=== PATIENT | female | born 1960 | race Caucasian/White ===

== ENCOUNTER 2023-11-06 22:49 | Emergency (ER) | payer SELFPAY ==
[2023-11-06 22:58] VITALS: BP 171/89; PULSE 91; RESP 18; TEMP 36.7; O2SAT 96; BMI 37.4
--- NOTE | 2023-11-06 23:16 | XR_ITS ---
The [address] [address] Patient Name: KEYSHAWN DURÁN MRN: [id number] date: 1960 Sex: F Assigned Patient Location: ER Current Patient Location: ER Accession/Order Number: [id number] Exam Date: 11/06/2023 23:59 Report Date: 11/07/2023 00:38 At the request of: IRENE MARKER Procedure: XR chest 2V EXAM: XR chest 2V HISTORY: fever, cough COMPARISON: Chest radiographs dated 10/30/2015. TECHNIQUE: 2 views of the chest were obtained. FINDINGS: The cardiac silhouette is stable in size. There are mild left basilar opacities. There is no significant pneumothorax or pleural effusion. No acute osseous abnormality is seen. XR/XR chest 2V IMPRESSION: 1. Mild left basilar atelectasis with otherwise clear lungs. Electronically authenticated by: Paula MCDANIELS Date: 11/07/2023 00:38
--- NOTE | 2023-11-06 23:16 | ED.URI1 ---
HPI - URI/Sore Throat General Chief Complaint: Upper Respiratory Infection Stated Complaint: POSS COVID Time Seen by Provider: 11/06/23 23:04 Source: patient Limitations: no limitations History of Present Illness HPI Narrative: This 63-year-old female, nonsmoker, presents for evaluation of chills, body aches, nausea with nasal congestion and a dry cough. The patient states she thinks she was exposed to COVID 19 at work and/or her has been sick with similar symptoms for the past several days. The patient's symptoms started yesterday. She did have COVID 19 vaccinations but has not had any booster shots. She has not taken any COVID 19 tests at home. She also requests something for her blood pressure because the Garlique tablets that she buys [id number] for her blood pressure has stopped working. She does not have a PCP. She thinks that the mucinex she is taking is causing her blood pressure to go up. She is not having any chest pain, shortness of breath, dizziness, palpations or syncope Related Data Allergies Allergy/AdvReac Type Severity Reaction Status Date / Time No Known Drug Allergies Allergy Verified 11/06/23 23:03 Review of Systems ROS Status of ROS 10 or more systems reviewed and unremarkable except as noted in history and below [facility] Social History Smoking status: Never smoker Exam Narrative Exam Narrative: Nurses note and vital signs reviewed and patient is not hypoxic. She was noted to be elevated at 171/89 General: The patient appears well and in no apparent distress. Patient is resting comfortably on cart. Skin: Warm, dry, no pallor noted. There is no rash noted. Head: Normocephalic, atraumatic Eye: Normal conjunctiva, no drainage, EOMI. PERRL Ears, Nose, Mouth, and Throat: oral mucosa is moist. Nares patent. Mouth without vesicles. Cardiovascular: Regular Rate and Rhythm, S1 and S2, pulses are brisk and equal bilaterally Respiratory: Patient is in no distress, no accessory muscle use, lungs are clear to auscultation, no wheezing, rales or rhonchi Back: non-tender, no CVA tenderness bilaterally to percussion. GI: Normal bowel sounds, no tenderness to palpation, no masses appreciated. No rebound, guarding, or rigidity noted. Musculoskeletal: The patient has no evidence of calf tenderness, no pitting edema, symmetrical pulses noted bilaterally Neurological: A&O x4, normal speech Psychiatric: Cooperative Constitutional Vital Signs, click to edit/add: Last Vital Signs Temp 98.1 F 11/06/23 22:58 Pulse 91 H 11/06/23 22:58 Resp 18 11/06/23 22:58 BP 171/89 H 11/06/23 22:58 Pulse Ox 96 11/06/23 22:58 O2 Del Method Room Air 11/06/23 22:58 Course Vital Signs Vital signs: Vital Signs Temperature 98.1 F 11/06/23 22:58 Pulse Rate 91 H 11/06/23 22:58 Respiratory Rate 18 11/06/23 22:58 Blood Pressure 171/89 H 11/06/23 22:58 Pulse Oximetry 96 11/06/23 22:58 Oxygen Delivery Method Room Air 11/06/23 22:58 Temperature 98.1 F 11/06/23 22:58 Pulse Rate 91 H 11/06/23 22:58 Respiratory Rate 18 11/06/23 22:58 Blood Pressure 171/89 H 11/06/23 22:58 Pulse Oximetry 96 11/06/23 22:58 Oxygen Delivery Method Room Air 11/06/23 22:58 MDM - URI/Sore Throat MDM Narrative Medical decision making narrative: This 63-year-old female, nonsmoker, presents for evaluation of fevers, chills, body aches, head and chest congestion with a dry cough. She also has nausea. She has not been vomiting or had diarrhea. Her has been sick with similar symptoms for the past several days. She had the first round of COVID 19 vaccinations but not the boosters. She also requests that I prescribe something for her elevated blood pressure because she has been taking ahwj-owy-[id number] medications and her blood pressure has not been responding to it. Her physical exam is benign. Her Covid 19 test was positive. She is medicated in emergency department with Zofran and Tylenol. Urinalysis is positive for bacteria and leukocyte esterase. Her chest x-ray does not show any acute findings. Lungs are clear, mediastinum is normal, there is no pulmonary infiltrates. She was medicated in emergency department for the urinary tract infection with Keflex. Her blood pressure is clinically improved. On reevaluation is is 144/88. She will be discharged home. She is agreeable to [facility], I did discuss with her that there are multiple medication interactions and side effects that she should review before taking the medication. 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 Lab Data Labs: Lab Results 11/06/23 11/06/23 Range/Units 23:07 23:47 Urine Color Yellow (YELLOW) Urine Clarity Clear (CLEAR) Urine pH 6.0 (5.0-9.0) Ur Specific [place] >=1.030 A (1.005-1.025) Urine Protein Negative (NEG/TRACE) mg/dL Urine Glucose (UA) Negative (NEGATIVE) mg/dL Urine Ketones Trace A (NEGATIVE) mg/dL Urine Occult Blood Small A (NEGATIVE) Urine Nitrite Negative (NEGATIVE) Urine Bilirubin Negative (NEGATIVE) Urine Urobilinogen 0.2 (0.2-1.0) EU/dL Ur Leukocyte Esterase Trace A (NEGATIVE) Urine RBC 2-5 A (0-2) #/HPF Urine WBC 2-5 A (NONE SEEN) #/HPF Ur Squamous Epith Cells Few A (NONE/RARE) #/LPF Urine Crystals None seen (None Seen) #/HPF Urine Bacteria Large A (NONE SEEN) #/HPF Urine Casts None seen (NONE SEEN) #/LPF Urine Mucus None seen (NONE SEEN) SARS-CoV-2 (PCR) Positive A (NEGATIVE) Discharge Plan Discharge Chief Complaint: Upper Respiratory Infection Clinical Impression: UTI (urinary tract infection), COVID-19, Elevated blood pressure reading Referrals: Physician,Non-Staff, [Primary Care Provider] - 1 week
[2023-11-06 23:18] LABS: SARS-CoV-2 Ag POSITIVE (NEGATIVE)
[2023-11-06] MEDS: ACETAMINOPHEN 325 MG TABLET 650 MG PO (23:22)
[2023-11-06] MEDS: ONDANSETRON 4 MG RAPDIS TABLET SL (23:23)
[2023-11-06 23:52] LABS: Bilirubin Urine NEGATIVE (NEGATIVE); Blood Urine SMALL (NEGATIVE); Clarity Urine CLEAR (CLEAR); Color Urine YELLOW (YELLOW); Glucose Urine UA NEGATIVE (NEGATIVE); Ketones Urine TRACE mg/dL (NEGATIVE); Leukocyte Esterase Urine TRACE (NEGATIVE); Nitrite Urine NEGATIVE (NEGATIVE); Protein Urine NEGATIVE (NEG/TRACE); Specific Gravity Urine >=1.030 (1.005-1.025); Urobilinogen Urine 0.2 EU/dL (0.2-1.0)
[2023-11-07 00:03] LABS: Bacteria Urine LARGE #/HPF (NONE SEEN); Cast Seen? NONE SEEN #/LPF (NONE SEEN); Crystals Seen? None Seen #/HPF (None Seen); Mucus Urine NONE SEEN (NONE SEEN); Squamous Epithelial Cell Urine FEW #/LPF (NONE/RARE)
[2023-11-07] MEDS: CEPHALEXIN 500 MG CAPSULE PO (01:00)
== END 2023-11-07 01:02 | disposition home or self-care (01) ==
PROVIDERS: Emergency Provider Emergency Medicine
DX: U07.1 COVID-19 (principal); N39.0 Urinary tract infection, site not specified; R03.0 Elevated blood-pressure reading, without diagnosis of hypertension
CPT/HCPCS: 71046; 81001; 87811; 99284

== ENCOUNTER 2024-01-26 08:02 | Emergency (ER) | payer OTHER, SELFPAY ==
[2024-01-26 08:05] VITALS: BP 153/114; PULSE 80; RESP 18; O2SAT 99; BMI 33.3
--- NOTE | 2024-01-26 08:25 | ED.GENADUL1 ---
HPI - General Adult General Chief complaint: Recheck/Abnormal Lab/Rx Stated complaint: High blood pressure Time Seen by Provider: 01/26/24 08:11 Source: patient Mode of arrival: walk-in History of Present Illness HPI narrative: This patient is here with several different complaints. She states that several days ago she went to one of the local [place] park and was doing a lot of walking. She had soreness in her legs subsequent to that time. She is up most of last night because she had some dry heaves and nausea and she had a choking spell that she thought caused some trouble breathing. She has not had respiratory complaints until this happened a and she felt like it was in the back of her throat. She she does not use tobacco products and has no previous history of pulmonary disease. She and her have no healthcare insurance and she has not seen a family doctor for many many years. She admits to being noncompliant taking blood pressure medicines and cholesterol medications. She used to be on lisinopril and amlodipine. Other medical problems that include status postcholecystectomy. She denies any known history of diabetes malignancies liver disease heart disease are all negative but again she been getting episodic health care at best. Related Data Home Medications Medication Instructions Recorded Confirmed No Known Home Medications 01/26/24 01/26/24 Allergies Allergy/AdvReac Type Severity Reaction Status Date / Time No Known Drug Allergies Allergy Verified 01/26/24 08:10 [facility] Medical History (Updated 01/26/24 @ 09:47 by Marco Antonio Damian MD) Hyperlipidemia ?E78.5 - Hyperlipidemia, unspecified (ICD-10) Hypertension ?I10 - Essential (primary) hypertension (ICD-10) Surgical History (Updated 01/26/24 @ 08:18 by Elizabeth Carl) Hx of cholecystectomy ?Z90.49 - Acquired absence of other specified parts of digestive tract (ICD-10) Social History Smoking status: Never smoker Exam Narrative Exam Narrative: Awake alert initially apprehensive and anxious and did not want to answer any questions about past medical history and physician history interaction. She does not appear an extremis her blood pressure is elevated as noted. On HEENT there is no carotid bruits, there is no jugular vein distention. HEENT shows no evidence of airway obstruction angioneurotic edema or swelling of the oral cavity is all negative. Her neck is soft and supple there is no headache or meningeal irritation. She is not confused. She is a good historian with effort. Her lungs are clear with no wheeze rales or rhonchi and she denies tobacco use. Heart sounds are normal with no S3-S4 or murmur. She does not have any abdominal pain today. Her legs were not swollen edematous tender warm or red. Pulses to the extremities is normal. Neurological examination shows cranial nerves II through XII are be normal and she has no focal motor no neurological deficits or weakness. There is no spasticity or clonus in her legs. Constitutional Vital Signs, click to edit/add: Last Vital Signs Pulse 80 01/26/24 08:05 Resp 18 01/26/24 08:05 BP 153/114 H 01/26/24 08:05 Pulse Ox 99 01/26/24 08:05 O2 Del Method Room Air 01/26/24 08:05 Course Vital Signs Vital signs: Vital Signs Pulse Rate 80 01/26/24 08:05 Respiratory Rate 18 01/26/24 08:05 Blood Pressure 153/114 H 01/26/24 08:05 Pulse Oximetry 99 01/26/24 08:05 Oxygen Delivery Method Room Air 01/26/24 08:05 Pulse Rate 80 01/26/24 08:05 Respiratory Rate 18 01/26/24 08:05 Blood Pressure 153/114 H 01/26/24 08:05 Pulse Oximetry 99 01/26/24 08:05 Oxygen Delivery Method Room Air 01/26/24 08:05 Medical Decision Making [facility] Narrative Medical decision making narrative: This patient has no insurance and has not seen a physician for many many years and is noncompliant with the meds that she was taking. Follow-up for her will be challenging and she knows that. Nonetheless she also understands it is very important to get her blood pressure back in the control. She is observed here till approximately 9:45 AM. Fortunately her laboratory testing does not show any obvious or acute abnormalities today. We will start her back up on some of her previous meds that she was on a long time ago including amlodipine and lisinopril. Will give her the name of our family clinic here. Discharge Plan Discharge Chief Complaint: Recheck/Abnormal Lab/Rx Clinical Impression: Hypertension Patient Disposition: Home, Self-Care Time of Disposition Decision: 09:47 Prescriptions / Home Meds: No Action No Known Home Medications Additional Instructions: Start the amlodipine and lisinopril today. Follow-up with local primary care providers Referrals: Physician,Non-Staff, MD [Primary Care Provider] - 1 week Stand Alone Forms: Portal Instructions
--- NOTE | 2024-01-26 08:26 | XR_ITS ---
The [address] [address] Patient Name: KEYSHAWN DURÁN MRN: [id number] date: 1960 Sex: F Assigned Patient Location: ER Current Patient Location: ER Accession/Order Number: [id number] Exam Date: 01/26/2024 08:54 Report Date: 01/26/2024 09:12 At the request of: FRANCISCA VOGEL Procedure: XR chest 1V EXAMINATION: XR chest 1V HISTORY: Dyspnea COMPARISON: No relevant comparison available. TECHNIQUE: AP portable FINDINGS: LUNGS: No significant pulmonary parenchymal abnormalities. VASCULATURE: No increased pulmonary vasculature. PLEURA: No pneumothorax, effusion, or pleural thickening. CARDIAC: No cardiomegaly or cardiac silhouette abnormality. MEDIASTINUM: No visible mass or adenopathy. BONES: No fracture or visible bone lesion. OTHER: Negative. XR/XR chest 1V IMPRESSION: No acute cardiopulmonary process Electronically authenticated by: LYNETTE NUÑEZ Date: 01/26/2024 09:12
[2024-01-26 08:50] VITALS: BP 187/87
[2024-01-26] MEDS: AMLODIPINE BESYLATE 5 MG TABLET PO (08:50)
[2024-01-26] MEDS: 0.9 % SODIUM CHLORIDE 1,000 ML 999 ML IV (08:50)
[2024-01-26 08:56] LABS: Basophils Absolute Auto 0.1 10^3/uL (0.0-0.1); Eosinophils Absolute Auto 0.2 10^3/uL (0.0-0.7); Eosinophils Percent Auto 1.8 % (0.9-7.0); Hematocrit 45.5 % (36.0-48.0); Hemoglobin 14.9 g/dL (12.0-16.0); Immature Granulocytes Abs Auto 0.05 10^3/uL (0.00-0.03); Immature Granulocytes Pct Auto 0.5 % (0.0-0.5); Lymphocytes Absolute Auto 3.2 10^3/uL (1.2-3.8); Lymphocytes Percent Auto 34.1 % (20.5-60.0); Mean Corpuscular HGB Conc 32.7 g/dL (29.9-35.2); Mean Corpuscular Hemoglobin 27.3 pg (26.7-34.0); Mean Corpuscular Volume 83.3 fL (81.0-99.0); Mean Platelet Volume 10.5 fL (9.5-13.5); Monocytes Absolute Auto 0.7 10^3/uL (0.3-0.8); Monocytes Percent Auto 7.3 % (1.7-12.0); Neutrophils Absolute Auto 5.1 10^3/uL (1.4-6.5); Neutrophils Percent Auto 55.3 % (43.0-75.0); Platelet Count 297 10^3/uL (150-450); Red Blood Count 5.46 10^6/uL (4.20-5.40); Red Cell Distribution Width 13.8 % (11.0-15.0); White Blood Count 9.3 10^3/uL (4.0-11.0)
[2024-01-26 09:17] LABS: Bilirubin Urine NEGATIVE (NEGATIVE); Blood Urine NEGATIVE (NEGATIVE); Clarity Urine CLEAR (CLEAR); Color Urine LT. YELLOW (YELLOW); Glucose Urine UA NEGATIVE (NEGATIVE); Ketones Urine NEGATIVE (NEGATIVE); Leukocyte Esterase Urine NEGATIVE (NEGATIVE); Nitrite Urine NEGATIVE (NEGATIVE); Protein Urine NEGATIVE (NEG/TRACE); Specific Gravity Urine 1.025 (1.005-1.025); Urobilinogen Urine 0.2 EU/dL (0.2-1.0); pH Urine 5.5 (5.0-9.0)
[2024-01-26 09:20] LABS: Lactate/Lactic Acid 1.9 mmol/L (0.4-2.0)
[2024-01-26 09:21] LABS: Urine Microscopic Indicated NO
[2024-01-26 09:30] LABS: Alanine Aminotransferase 24 U/L (14-59); Albumin Globulin Ratio 0.8; Albumin Level 3.4 g/dL (3.4-5.0); Alkaline Phosphatase 93 U/L (46-116); Anion Gap 13.5; Aspartate Amino Transferase 17 U/L (15-37); Bilirubin Total 1.3 mg/dL (0.2-1.0); Calcium 9.2 mg/dL (8.5-10.1); Carbon Dioxide 28.3 mmol/L (21.0-32.0); Chloride 103 mmol/L (98-107); Estimated GFR (African America >60 (>=60); Estimated GFR (Non-African Ame >60 (>=60); Globulin 4.3 g/dL; Glucose 104 mg/dL (74-106); Potassium 3.8 mmol/L (3.5-5.1); Sodium 141 mmol/L (136-145); Thyroid Stimulating Hormone 1.488 uIU/mL (0.358-3.740); Total Protein 7.7 g/dL (6.4-8.2); Troponin I High Sensitivity <4.0 pg/mL (4.0-51.3)
[2024-01-26 10:20] VITALS: BP 180/100; PULSE 65; RESP 18; O2SAT 96
--- NOTE | 2024-01-26 11:44 | ECG_ITS ---
The [facility] Test Date: 2024-01-26 Pat Name: KEYSHAWN DURÁN Department: Room: - Gender: Female Ent Nurse: : 1960 Requested By: [id number] Order Number: [id number] Reading MD: FRANCOIS SEARS Measurements Intervals [place] Rate: 76 P: 38 GA: 156 QRS: 60 QRSD: 90 T: 57 QT: 388 QTc: 418 Interpretive Statements 1100 Sinus rhythm 9110 normal ECG No previous ECG available for comparison Electronically Signed On 01-26-2024 22:34:54 EST by FRANCOIS SEARS
== END 2024-01-26 10:20 | disposition home or self-care (01) ==
PROVIDERS: Emergency Provider Emergency Medicine Emergency Medical Services
DX: I10 Essential (primary) hypertension (principal); E78.5 Hyperlipidemia, unspecified; Z91.148 Patient's other noncompliance with medication regimen for other reason; Z90.49 Acquired absence of other specified parts of digestive tract
CPT/HCPCS: 36415; 71045; 80053; 81003; 83605; 84443; 84484; 85025; 93005; 99284